=== PATIENT | male | born 1975 | race African-American/Black ===

== ENCOUNTER 2020-07-07 10:38 | Emergency (ER) | payer MEDICAID, OTHER ==
[~2020-07-07] VITALS: Ht 177.8 cm; Wt 79.4 kg
--- NOTE | 2020-07-07 10:55 | NUR ---
MARY Masterson FROM [place] [employer] [facility],[place] CALLED 911, LAYING ON THE GROUND -NARCAN WAS GIVEN BY EMS FOR PINPOINT PUPILS,MUMBLING RESPONSE TO QUESTIONS. PATIENT ALTERED. STILL HAS PINPOINT PUPILS, DR. DUARTE AT BEDSIDE FOR EVAL.
[2020-07-07] MEDS ORDERED: ONDANSETRON HCL/PF 4 MG/2 ML VIAL ONE (11:01)
[2020-07-07] MEDS ORDERED: NALOXONE PREFILLED SYRINGE 2 MG/2 ML SYRINGE ONE ×3 (11:01→11:43)
--- NOTE | 2020-07-07 11:10 | NUR ---
patient takent to radiology for CT.
[2020-07-07 11:14] LABS: BASOPHILS # (AUTO) 0.1 /CMM (0.0-0.2); BASOPHILS % (AUTO) 0.8 % (0.0-2.0); EOSINOPHILS % (AUTO) 0.3 % (0.0-6.0); HEMATOCRIT 48 % (39-51); HEMOGLOBIN 15.6 g/dL (13.5-17.5); LYMPHOCYTES # (AUTO) 1.6 /CMM (0.8-4.8); LYMPHOCYTES % (AUTO) 17.8 % (20.0-44.0); MEAN CORPUSCULAR HGB CONC 33 g/dl (31.0-36.0); MEAN CORPUSCULAR VOLUME 81 fL (80-96); MONOCYTES # (AUTO) 0.8 /CMM (0.1-1.30); MONOCYTES % (AUTO) 9.6 % (2.0-12.0); NEUTROPHILS # (AUTO) 6.3 /CMM (1.8-8.9); NEUTROPHILS % (AUTO) 71.5 % (43.0-81.0); PLATELET COUNT (AUTO) 232 /CMM (150-450); RED BLOOD CELL COUNT(AUTO) 5.91 MIL/uL (4.5-6.0); WHITE BLOOD COUNT (AUTO) 8.8 K/uL (4.3-11.0)
[2020-07-07 11:30] LABS: CARBON DIOXIDE 24 mmol/L (21-32); CHLORIDE 103 mmol/L (98-107); CREATININE 0.9 mg/dL (0.6-1.3); GLUCOSE 88 mg/dL (74-106); SODIUM SERUM 137 mmol/L (136-145); UREA NITROGEN, BLOOD 21 mg/dL (7-18)
[2020-07-07 11:31] LABS: POTASSIUM 5.6 mmol/L (3.5-5.1)
[2020-07-07 11:36] LABS: ACETAMINOPHEN 0 ug/ml (10-30); ALANINE AMINOTRANSFERASE 28 U/L (12-78); ALBUMIN 3.7 g/dL (3.4-5.0); ALCOHOL, BLOOD < 3 mg/dL (0-0); ALKALINE PHOSPHATASE 87 U/L (46-116); ASPARTATE AMINOTRANSFERASE 51 U/L (15-37); BILIRUBIN,TOTAL 0.4 mg/dL (0.2-1.0); CALCIUM, SERUM 9.2 mg/dL (8.5-10.1); TOTAL PROTEIN, SERUM 8.2 g/dL (6.4-8.2)
[2020-07-07] MEDS: ONDANSETRON HCL/PF - ER 4 MG/2 ML VIAL IV ONE (11:39)
[2020-07-07] MEDS: NALOXONE HCL 0.4 MG/ML AMPUL IV ONE ×2 (11:39→11:43)
[2020-07-07] MEDS ORDERED: FUROSEMIDE 40 MG/4 ML VIAL ONE (12:35)
[2020-07-07] MEDS: FUROSEMIDE 40 MG/4 ML VIAL IV ONE (12:41)
[2020-07-07] MEDS ORDERED: NALO4SPR NS (14:28)
--- NOTE | 2020-07-07 15:21 | NUR ---
PATIENT ASLEEP BUT AROUSABLE TO STIMULI.
--- NOTE | 2020-07-07 17:17 | NUR ---
PATIENT WAKES UP FROM TIME TO TIME, THEN WILL GO BACK TO SLEEP. PATIENT'S VSS. NO DISTRESS NOTED. ON O2 AT 2LPM VIA NC JUST FOR COMFORT.
--- NOTE | 2020-07-08 02:59 | NUR ---
Patient given written and verbal discharge instructions. Patient verbalizes understanding of instructions. Patient is ambulatory with steady gait. Refuses offer of senior care placement. Patient given list of available shelters in surrounding area. Patient is awake and alert to self, day, and place. Pt ambulatory with a steady gait.
[2020-07-08 05:22] VITALS: BP 122/84
== END 2020-07-08 03:00 | disposition home or self-care (01) ==
LOC: EDBD 10:43 → ER 10:43
DX: T40.601A Poisoning by unspecified narcotics, accidental (unintentional), initial encounter (principal); Z60.2 Problems related to living alone; Z79.899 Other long term (current) drug therapy; Y92.89 Other specified places as the place of occurrence of the external cause
CPT/HCPCS: 36415; 70450; 80048; 80076; 80299; 80320; 85025; 96374; 96375; 99284; J1940; J2310 ×3; J2405 ×2; G0480